=== PATIENT | female | born 1980 ===

== ENCOUNTER 2024-06-17 04:00 | Day surgery (SDC) | payer OTHER ==
[2024-06-13 17:53] VITALS: BMI 30.1
[2024-06-17] MEDS ORDERED: BUPIVACAINE HCL/PF 0.25% (2.5MG/ML) 10 ML VIAL ONE (07:49)
[2024-06-17] MEDS ORDERED: MIDAZOLAM HCL 2 MG/2 ML SINGLE DOSE VIAL ONE (08:02)
[2024-06-17] MEDS ORDERED: PROPOFOL 20 ML ONE (08:02)
[2024-06-17] MEDS ORDERED: ROCURONIUM BROMIDE 50 MG/5 ML SYRINGE ONE ×2 (08:04→09:48)
[2024-06-17] MEDS: ceFAZolin SODIUM 1 GM VIAL IVPB ONE (08:33)
[2024-06-17] MEDS ORDERED: HEPARIN NA (PORCINE) 5,000 UNITS/ML 1ML VIAL ONE (08:36)
[2024-06-17] MEDS: HEPARIN NA (PORCINE) 5,000 UNITS/ML 1ML VIAL SQ ONE ×2 (08:40→08:45)
[2024-06-17] MEDS: BUPIVACAINE HCL/PF 0.25% (2.5MG/ML) 10 ML VIAL IJ ONE (09:00)
[2024-06-17] MEDS ORDERED: ceFAZolin SODIUM 1 GM VIAL ONE (09:19)
[2024-06-17] MEDS ORDERED: ONDANSETRON 4 MG/2 ML VIAL ONE ×2 (09:19→13:02)
[2024-06-17] MEDS ORDERED: DEXAMETHASONE SOD PHOSPHATE 4 MG/1 ML VIAL ONE (09:19)
[2024-06-17] MEDS ORDERED: NEOSTIGMINE METHYLSULFATE 0.5 MG/1 ML - 10 ML MDV ONE (10:12)
[2024-06-17] MEDS ORDERED: GLYCOPYRROLATE 0.2 MG/1 ML VIAL ONE ×2 (10:14)
[2024-06-17] MEDS ORDERED: KETOROLAC TROMETHAMINE 30 MG/1 ML VIAL ONE (10:18)
[2024-06-17] MEDS ORDERED: oxyCODONE HCL 5 MG TABLET PO PRN (10:43)
[2024-06-17] MEDS: LACTATED RINGERS SOLUTION 1,000 ML IV SCH (11:06)
[2024-06-17 12:51] VITALS: RESP 20
[2024-06-17] MEDS: ONDANSETRON 4 MG/2 ML VIAL IVPUSH PRN (13:12)
[2024-06-17 16:27] VITALS: BP 113/73; PULSE 87; TEMP 98.7
== END 2024-06-17 15:20 | disposition home or self-care (01) ==
LOC: JASU-SURG 04:00
PROVIDERS: ATTEND Surgery
PROC: 0WUF4JZ Supplement Abdominal Wall with Synthetic Substitute, Percutaneous Endoscopic Approach (ICD-10-PCS; principal; 2024-06-17 08:58)
DX: K42.9 Umbilical hernia without obstruction or gangrene (principal)
CPT/HCPCS: 81025; 86850; 86900; 86901; 94760; C1781; J1644